=== PATIENT | female | born 1995 | race Caucasian/White ===

== ENCOUNTER 2020-11-17 08:51 | Inpatient (IN) | payer BC, MEDICAID, SELFPAY ==
[2020-11-17] VITALS (30 sets, daily range): BP systolic 110–147; BP diastolic 64–97; PULSE 44–96; RESP 16–17; TEMP 36.6; O2SAT 98–100
[2020-11-17] MEDS: oxytocin 30 UNIT/500 ML BAG 600 UNIT IV (09:16)
--- NOTE | 2020-11-17 09:25 | PM.DELIVERY ---
Delivery Note: Date of delivery: November 17, 2020 Coding Level of Care Code Acute Construction Manager for Dewayne Tinajero
--- NOTE | 2020-11-17 09:30 | P.HP_ITS ---
Providers/Chief Complaint Admitting Physician: Raheem Zamarripa MD Primary Care Provider: Lionel Moon MD Chief Complaint: IUP HPI GASTROENTEROLOGY NURSE PRACTITIONER History of Present Illness HISTORY AND PHYSICAL: Admission for home delivery/no care here Chief Complaint: I just had a baby History of present illness: Ms Beltrán is a 25 year old with reported due date of 12/01/2020 and an estimated gestational age of 38+ weeks who was brought in by EMS with reports of a home delivery. She stated that she started to have contractions at 6 AM that were painful so she got in the bath. Her contractions improved and so she did not feel the need to go into the hospital. When she got out of the bath her contractions got stronger and she proceeded to deliver a baby at home after which she called EMS. Per EMS report they arrived after baby was born and placenta was delivering. They brought the placenta separately. Patient was brought to the hospital about 30 to 45 minutes after delivery of baby-bleeding was not monitored. She states that she is having a lot of cramping pain, denies headaches, blurry vision, scotoma, visual changes. course: Patient states that she had care at [facility]-her last appointment was 2 to 3 weeks ago. She states that she has had a total of 5 visits---Limited care-she states that everything was normal with care and she had no complications--- records have been requested LABS: Requested on 11/17/2020 Obstetric History: x2 Gynecological history: Menstrual :-Regular 28-day cycles as far as she can remember Sexual:-Deferred today Pap smear:-Reports normal Pap smears Sexually transmitted infections:-Denies any sexually transmitted diseases Contraception:-Does not remember what she is used for contraception in the past--she states that she is interested in sterilization Past medical history: Denies medical problems-diabetes, asthma, hypertension, seizures, DVT/PE Past surgical history: Denies surgeries Allergies: No known allergies to medication Current Medications: none Social History: Alcohol use:-Denies current or past use Tobacco use:-Started smoking at the age of 14 and smokes 1 pack of cigarettes a day Drug use:-Denies drug use--drug screen was positive for methamphetamines and marijuana and her mother who accompanies her states that 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 Other pertinent positives and negatives have been documented in history of present illness. Physical exam: Blood pressure: 148/92 mm of mercury Pulse: 110 beats per minute Respiration: 20 breaths per minute General: well developed, appears to be uncomfortable. Neuro/Psych: alert, oriented to time, place and person. Neck: No thyromegaly Heart: S1-S2 heard, regular rate and rhythm. Lungs: Clear to auscultation bilaterally. Breast: Deferred Abdomen: Soft, nontender, no rebound, no guarding, fundus firm below umbilicus, Legs: No pedal edema no calf tenderness. Negative Homans sign Back: No CVA tenderness Skin: Normal over abdomen, Lymph nodes: No palpable inguinal lymph nodes Pelvic exam: External genitalia: Appears normal, no lesions, shaved hair Urethral meatus: Normal size, normal location Urethra: Nontender, no masses Bladder: Nontender Vagina: Appears normal, normal estrogen, no lesion, small periurethral tear that was hemostatic Cervix: Appears normal, no CMT, no discharge, no cervical lacerations Uterus: Fundus firm below midline-intact Adnexa: Not palpable Perineum/anus: Intact-no tears--800 mcg of Cytotec placed rectally to help with improving tone of the lower uterine segment as patient did not tolerate bimanual massage well Rectum: Anal sphincter intact Baby girl weighing 6 pounds 5 ounces. Time of --around 815 at home, no time for delivery of placenta, no Apgars since they reached the hospital over 30 minutes after delivery. Placenta was examined--cotyledons were intact , centrally inserted umbilical cord with 3 vessels noted. It was discarded Estimated blood loss at hospital-150 mL Complications-patient had elevated blood pressures-undergoing evaluation for preeclampsia This documentation was created by [employer] egg smeller software (known for inherent egg smeller error). Every effort was made to assure accuracy of egg smeller. Any obvious errors or omissions should be clarified with the author of the document. Assessment : -25-year-old 3 para 2-0-0-2 status post home delivery of baby and placenta -Limited care/no care-records have been requested -Elevated blood pressure-differential diagnosis-pain, methamphetamine use, gestational hypertension/preeclampsia -Multiparity requesting sterilization-Medicaid consent not here. PLAN: -Discussed with patient that her blood pressure is elevated and I reviewed that this could just be related to the pain of just having a baby versus preeclampsia/gestational hypertension-straight cath urine analysis was okay attained and protein creatinine ratio to be done from this-CBC already drawn but will add CMP to this as well. Discussed that if she is preeclamptic she will require magnesium sulfate for seizure prophylaxis. This was discussed with patient in great detail including risks benefits and alternatives. She understands this and is willing to accept magnesium sulfate if needed -Discussed recovery from delivery -Admit to hospital to recover from delivery and to further evaluate elevated blood pressure -Drug screen sent and we will request patient's records although it sounds like she has had very limited care -She desires sterilization however we do not have her Medicaid consent with her and she has not been Covid tested and is unlikely we will be able to do it . Interval sterilization discussed with her and all her questions were answered today. -Urinalysis with reflex culture done I spent a total of 90 minutes evaluating patient examining patient and getting patient admitted today. Medications/Allergies Home Medications Medication Instructions Recorded Confirmed Last Taken Type No Known Home Medications 11/17/20 11/17/20 Unknown History Allergies Allergy/AdvReac Type Severity Reaction Status Date / Time No Known Allergies Allergy Verified 11/17/20 15:27 Vitals/I&O/Wt Last Vital Signs Pulse 83 11/17/20 09:23 BP 130/64 11/17/20 09:23 Data : 11/17/20 22:05 11/17/20 22:05 Attestations Medical Necessity Statement*: Patient will need to stay for 2 months or more midnights to recover from delivery and possible preeclampsia Coding Level of Care Code Acute Paper Grader for Dewayne Tinajero
[2020-11-17] MEDS: benzocaine-menthol 78 gm Canister 1 SPRAY TOPICAL (09:49)
[2020-11-17] MEDS: HYDROcodone-acetaminophen 5-325 mg Tablet 1 TAB PO (09:49)
[2020-11-17 10:18] LABS: Basophils # 0.1 10^3/uL (0.0-0.1); Basophils % 0.6 %; Eosinophils # 0.1 10^3/uL (0.0-0.8); Eosinophils % 0.7 %; Hematocrit 32.9 % (37.0-47.0); Hemoglobin 10.8 g/dL (11.5-15.3); Lymphocytes # 1.9 10^3/uL (0.8-4.8); Lymphocytes % 23.6 %; Mean Corpuscular HGB Conc 32.8 g/dL (30.0-36.0); Mean Corpuscular Hemoglobin 29.6 pg (28.0-34.0); Mean Corpuscular Volume 90.1 fL (81-99); Mean Platelet Volume 12.7 fL (7.4-10.4); Monocytes # 0.3 10^3/uL (0.2-0.9); Monocytes % 3.9 %; Neutrophils # 5.74 10^3/uL (1.8-7.7); Neutrophils % 70.3 %; Nucleated Red Blood Cells % 0 %; Platelet Count 140 10^3/cmm (130-400); Red Blood Count 3.65 10^6/uL (4.1-5.3); Red Cell Distribution Width 12.8 % (12.1-15.1); White Blood Count 8.2 10^3/uL (4.0-10.0)
[2020-11-17 10:27] LABS: Urine Appearance Clear (CLEAR); Urine Color Yellow (Yellow)
[2020-11-17 10:28] LABS: Bilirubin Urine Neg (Negative); Blood Urine Trace (Negative); Glucose Urine UA Norm (Normal); Ketones Urine Negative (Negative); Leukocyte Esterase Urine Negative (Negative); Nitrate Urine Negative (Negative); Protein Urine Neg (Negative); Urobilinogen Urine 1 mg/dL (Negative); pH Urine 7 (5-7)
[2020-11-17 10:37] LABS: Add Urine Culture? No; Bacteria Urine TRACE /hpf; Mucus Urine 1+ /hpf; Squamous Epithelial Cell Urine 0-4 /hpf (0-5)
[2020-11-17 10:38] LABS: Amphetamines Screen Urine Positive (Negative); Barbiturates Screen Urine Negative (Negative); Benzodiazepines Screen Urine Negative (Negative); Cocaine Screen Urine Negative (Negative); Opiate Screen Urine Negative (Negative); PCP Screen Urine Negative (Negative); THC Screen Urine Positive (Negative)
[2020-11-17 13:43] LABS: Urine Creatinine 85 mg/dL (28-217)
[2020-11-17 13:45] LABS: UPRO/UCREAT Ratio 0.32 mg/mg CR; Urine Protein Random 27 mg/dL
[2020-11-17] MEDS: dextrose 5%-lactated ringers 1,000 ML 75 ML IV (15:21)
[2020-11-17] MEDS: magnesium sulfate premix 4 GM/100 ML PREMIX IV (15:22)
[2020-11-17] MEDS: magnesium sulfate premix 20 GM/500 ML BAG IV (15:44)
[2020-11-17 15:57] LABS: Alanine Aminotransferase 49 U/L (0-33); Albumin Level 2.7 g/dL (3.5-5.2); Alkaline Phosphatase 128 IU/L (35-105); Anion Gap 10.9 (5-19); Aspartate Amino Transferase 44 U/L (0-32); Blood Urea Nitrogen 6 mg/dL (6-20); Calcium 7.3 mg/dL (8.5-10.5); Carbon Dioxide 22 mmol/L (22-29); Chloride 104 mmol/L (98-107); Globulin 2.1 g/dL (1.3-4.6); Glomerular Filtration Rate 196.1 mL/min (90-130); Glucose 70 mg/dL (65-115); Osmolality Calculated 272 mOsm/kg (285-295); Potassium 3.9 mmol/L (3.5-5.1); Sodium 133 mmol/L (136-145); Total Bilirubin 0.5 mg/dL (0.15-1.2); Total Protein 4.8 g/dL (6.6-8.7)
[2020-11-17] MEDS: ibuprofen 800 mg tablet PO (20:56)
[2020-11-17 22:17] LABS: Hematocrit 32.4 % (37.0-47.0); Mean Corpuscular Hemoglobin 29.6 pg (28.0-34.0); Mean Corpuscular Volume 87.3 fL (81-99); Mean Platelet Volume 12.3 fL (7.4-10.4); Platelet Count 168 10^3/cmm (130-400); Red Blood Count 3.71 10^6/uL (4.1-5.3); Red Cell Distribution Width 12.7 % (12.1-15.1); White Blood Count 8.4 10^3/uL (4.0-10.0)
[2020-11-17 22:40] LABS: Alanine Aminotransferase 56 U/L (0-33); Albumin Level 2.9 g/dL (3.5-5.2); Alkaline Phosphatase 133 IU/L (35-105); Aspartate Amino Transferase 55 U/L (0-32); Blood Urea Nitrogen 4 mg/dL (6-20); Calcium 6.5 mg/dL (8.5-10.5); Carbon Dioxide 25 mmol/L (22-29); Chloride 103 mmol/L (98-107); Globulin 2.1 g/dL (1.3-4.6); Glomerular Filtration Rate 196.1 mL/min (90-130); Glucose 73 mg/dL (65-115); Osmolality Calculated 275 mOsm/kg (285-295); Sodium 135 mmol/L (136-145); Total Bilirubin 0.5 mg/dL (0.15-1.2)
[2020-11-17 22:41] LABS: Magnesium Level (OB Only) 4.6 mg/dL (5.0-7.5)
[2020-11-18] VITALS (20 sets, daily range): BP systolic 104–135; BP diastolic 67–87; PULSE 53–83; RESP 14–18; TEMP 36.4–36.8; O2SAT 96–100
[2020-11-18] MEDS: magnesium sulfate premix 20 GM/500 ML BAG IV ×2 (00:58→12:57)
--- NOTE | 2020-11-18 01:36 | PC.NURSE ---
Depression assessment not done, pt responds to verbal stimulus and is oriented to person, place and time. She quickly falls back to sleep after being roused. Her mother is in the room with her. Pt is showing no signs of wanting to hurt herself or others at this time
[2020-11-18 04:48] LABS: Magnesium Level (OB Only) 5.4 mg/dL (5.0-7.5)
[2020-11-18] MEDS: dextrose 5%-lactated ringers 1,000 ML 75 ML IV (05:35)
--- NOTE | 2020-11-18 07:15 | P.PN_ITS ---
Subjective Subjective: Interval history: Subjective- Ms Beltrán is doing okay today. She wants to be off the magnesium. She is tolerating ice chips. She denies nausea, vomiting, fever, chills, shortness of breath and chest pain. She denies abdominal pain. Is formula feeding. Wants to go home. SCDs, Lind catheter are in place. Magnesium levels overnight with therapeutic with the last level being 5.6. She has no questions about preeclampsia. Admits to having hepatitis C. OBJECTIVE/PHYSICAL EXAM: Gen.: No acute distress Heart: S1-S2 heard, regular rate and rhythm Lungs: Clear to auscultation bilaterally Abdomen: Soft, fundus firm below umbilicus, Legs: No calf tenderness, +1 bilateral pitting pedal edema. ASSESSMENT AND PLAN: 25-year-old 3 para 3-0-0-3 status post home delivery on 11/17/2020, day #1 -Elevated blood pressure-diagnosed with preeclampsia based on elevated protein creatinine ratio-currently undergoing magnesium sulfate for 24 hours--new to be completed at 4 PM. Blood pressures have been normal on magnesium sulfate. Patient counseled about diagnosis of preeclampsia yesterday and she has no questions today. Understands importance of magnesium sulfate and observation to ensure that blood pressure is well controlled. Discussed that her blood pressures may be elevated because of methamphetamine use or pain as well. Discussed that I would recommend staying until tomorrow so that we can ensure that her blood pressures are normal off of magnesium sulfate.. She states that she will think about it but really wants to go home today. She understands that if she goes home today it would be against my medical recommendation and she will have to sign out AGAINST MEDICAL ADVICE. -Positive drug screen for methamphetamines and marijuana--patient does not want to talk about her usage--discussed rehab facilities-she does not seem interested in this right now. -Limited care--we are working on getting records from [place]. -Her mother admits to her having hepatitis C diagnosed when she was a teenager- this could explain the elevated liver enzymes--discussed that it is important to get hepatitis C treated and reviewed treatment options available. Also discussed risks of untreated hepatitis C--chief fundraising officer notified. Would recommend that she have these evaluated at her 6-week post visit at [facility] -Desires sterilization-Medicaid consent has not been obtained until now and cannot do sterilization because Covid testing was not done and sterilization permit has not yet been received--she will contact her providers in [place] to schedule outpatient tubal ligation. Recommended Depo- Provera prior to discharge to provide contraception until sterilization can be performed. -Continue magnesium sulfate, ice chips, Lind catheter with strict I's and O's until 4 PM--anticipate stopping magnesium sulfate at this time because she is diuresing well and has had good blood pressure control. Vitals/I&O/Wt Last Vital Signs Temp 97.8 F 11/17/20 18:00 Pulse 72 11/18/20 06:00 Resp 16 11/18/20 06:00 BP 129/85 11/18/20 06:00 Pulse Ox 100 11/18/20 06:00 11/17/20 11/18/20 11/18/20 22:59 06:59 14:59 Intake Total 1461.667 / 1461.667 Output Total 3100 / 3100 2850 / 5950 Balance -3100 / -3100 -1388.333 / -4488.333 Physical Exam Urinary Catheter Management^: Lind: Cath Placed During This Visit: yes Reason for Continuing Indwelling Catheter: Accurate Measurement of Urinary Output in Critically Ill Patients Urinary Catheter Date of Insertion: 11/17/20 Urinary Catheter Time of Insertion: 15:45 Data : 11/17/20 22:05 11/17/20 22:05 Attestations Medical Necessity Statement*: Patient will need to stay for 1 more midnight to recover from delivery and preeclampsia Coding Level of Care Code Acute Child Development Specialist for Dewayne Tinajero
[2020-11-18 10:46] LABS: Magnesium Level (OB Only) 5.9 mg/dL (5.0-7.5)
--- NOTE | 2020-11-18 17:57 | PC.NURSE ---
Educated patient that Dr. Pastrana recommended patient stay until in the morning, to continue to monitor patient's blood pressures. Patient acknowledged understanding, and asked if she did go home, if she could monitor her own blood pressures. This repairer typewriter did acknowledge that the patient could monitor her blood pressures at home, but that it was the physician's recommendation for her to stay.
--- NOTE | 2020-11-18 23:24 | PC.NURSE ---
PATIENT LEAVING AMA FROM FLOOR. AMA FORM SIGNED. PT HAS BEEN EDUCATED BY THIS NURSE, HASEEB LUND ON DAYSHIFT, AND DR TREJO ABOUT RISKS OF LEAVING PRIOR TO DISCHARGE. PT VERBALIZES UNDERSTANDING. IV REMOVED. VITAL SIGNS TAKEN. PADS AND MESH PANTIES AND SOCKS GIVEN TO PT. SIGNIFICANT OTHER HERE TO PICK HER UP.
--- NOTE | 2020-11-19 16:32 | PC.NURSE ---
Lab results HASEEB Peñaloza came to me and has been unsuccessful with trying to notify the patient to discuss her lab results. The patient's mother has been in contact with her but she has not answered the phone when the staff notifies her. Lab results cannot be shared with the patient's mother. A text was sent by this nurse to the patient to have her notify Anabela at the hospital. No results were given. The message is as follows: Reba this is Yesenia from the OB department. Can you please give Anabela a call at [phone]. She needs to talk with you about some of your lab results. We cannot share with your mother.
--- NOTE | 2020-11-19 16:52 | PC.NURSE ---
Pt responded to text sent (see last nurse note from Kirstin Patiño RN) and called. This nurse discussed with pt the results of E. Coli in her urine and that she had a prescription for Bactrim at [facility]. Pt verbalized understanding, pt denied having any questions at this time, pt was given the phone number to Dr. Pastrana's office for any questions related to the lab results. Pt said she had to call Dr. Pastrana to schedule her tubal anyways.
== END 2020-11-18 21:30 | disposition left against medical advice (07) | DRG 776 ==
PROVIDERS: Obstetrics & Gynecology; Admitting Provider Obstetrics & Gynecology; PCP Family Medicine; Visit Provider Obstetrics & Gynecology
DX: O14.95 Unspecified pre-eclampsia, complicating the puerperium (principal); O98.43 Viral hepatitis complicating the puerperium; O99.325 Drug use complicating the puerperium; B19.20 Unspecified viral hepatitis C without hepatic coma; F15.90 Other stimulant use, unspecified, uncomplicated; F12.90 Cannabis use, unspecified, uncomplicated
CPT/HCPCS: 36415; 51702; 59409; 80053; 80306; 81001; 82570; 83735; 84156; 85025; 85027; 86850; 86900; 87077; 87086; 87186; J3475

== ENCOUNTER → 2021-05-24 14:00 | Outpatient (BNVA) | payer BC, MEDICAID, SELFPAY | PROVIDERS: PCP Family Medicine; Visit Provider Obstetrics & Gynecology | DX: Z30.9 Encounter for contraceptive management, unspecified (principal) | CPT/HCPCS: 81025 ==

== ENCOUNTER → 2021-06-02 16:12 | Outpatient (BNVA) | payer BC, MEDICAID, SELFPAY | PROVIDERS: PCP Family Medicine | DX: Z20.822 Contact with and (suspected) exposure to COVID-19 (principal) | CPT/HCPCS: 87635 ==